=== PATIENT | male | born 2000 | race Two or more races ===

== ENCOUNTER 2022-02-08 06:43 | Emergency (ER) | payer OTHER ==
[~2022-02-08] VITALS: Ht 180.3 cm; Wt 97.8 kg
[2022-02-08 06:44] VITALS: BP 121/58
[2022-02-08] MEDS ORDERED: KETOROLAC 60MG 2ML VIAL IM ONE (07:35)
[2022-02-08] MEDS ORDERED: diazePAM 5MG TABLET PO ONE (07:35)
[2022-02-08] MEDS ORDERED: METH-1164 PO (08:30)
== END 2022-02-08 08:38 | disposition home or self-care (01) ==
LOC: M ED 06:43
DX: M54.50 Low back pain, unspecified (principal); X50.0XXA Overexertion from strenuous movement or load, initial encounter; Y93.B3 Activity, free weights; Y99.1 Military activity
CPT/HCPCS: 96372; 99282; J1885